=== PATIENT | female | born 1965 | race Hispanic/Latino ===

== ENCOUNTER → 2018-01-28 | Outpatient (CLI) | payer OTHER | LOC: MAMMO 09:34 | PROVIDERS: ATTEND Internal Medicine | DX: Z12.31 Encounter for screening mammogram for malignant neoplasm of breast (principal) | CPT/HCPCS: 77067 ==

== ENCOUNTER → 2018-02-22 | Outpatient (CLI) | payer OTHER ==
--- NOTE | 2018-02-22 10:19 | Diagnostic Imaging Report ---
PROCEDURE: US THYROID COMPARISON: None. INDICATIONS:Thyrotoxicosis TECHNIQUE: Transverse and longitudinal nickerson-scale sonographic images of the thyroid were obtained and supplemented with color doppler. FINDINGS: Right thyroid lobe: 4.5 x 1.3 x 1.8 cm. Heterogeneous echotexture. 3 mm cyst in the upper pole. 1.3 x 1.2 x 1.3 cm nodule in the midpole, solid (2 points), hypoechoic (2 points), wider than tall (zero point) Irregularly marginated (2 points), without echogenic foci (zero point) Questionable 1.5 cm lobulated isoechoic nodule. Left thyroid lobe: 3.7 x 1.5 x 1.6 cm. Scattered sub-5 mm nodules. Isthmus: 0.3 cm CONCLUSION: 1.3 cm right thyroid nodule, TI RADS 4, recommend ultrasound guided FNA. Dictated by: Unruly Baugh M.D. on 02/22/2018 at 10:26 Electronically approved by: Unruly Baugh M.D. on 02/22/2018 at 10:26
== END ==
LOC: US 09:11
PROVIDERS: ATTEND Internal Medicine
DX: E05.90 Thyrotoxicosis, unspecified without thyrotoxic crisis or storm (principal)
CPT/HCPCS: 76536

== ENCOUNTER → 2018-03-06 | Outpatient (CLI) | payer OTHER ==
--- NOTE | 2018-03-06 13:39 | Diagnostic Imaging Report ---
#[id number] - MGDXBIL #BILATERAL DIGITAL DIAGNOSTIC MAMMOGRAM WITH SPOT COMPRESSION: 03/06/2018 Comparison is made to exams dated: 01/28/2018 mammogram - [facility] and 03/09/2016 mammogram - [facility]. Current study contains 4 films. The tissue of both breasts is heterogeneously dense. This may lower the sensitivity of mammography. There is an irregular density in the left breast middle depth superior region seen on the mediolateral oblique view only that appears persistent with focal spot compression. The density in the right breast appears to "press out" with focal spot compression and therefore represents overlapping breast tissue. No other significant masses, calcifications, or other findings are seen in either breast. IMPRESSION: INCOMPLETE: NEEDS ADDITIONAL IMAGING EVALUATION The irregular density in the left breast is indeterminate. An ultrasound is recommended. The patient will be contacted by the Mammography Department to schedule this appointment. Rajendra Anthony Jr., D.O. cw/:03/06/2018 11:51:48 Battery Test Engineer: Isabel WILSON(Yovani)(M), [facility] letter sent: Additional Imaging Needed Mammogram BI-RADS: 0 Indeterminate
--- NOTE | 2018-03-07 15:57 | Diagnostic Imaging Report ---
#[id number] - USBRELIMLT ULTRASOUND OF THE LEFT BREAST : 03/07/2018 Comparison is made to exams dated: 03/06/2018 mammogram and 01/28/2018 mammogram - [facility]. Color flow and real-time ultrasound were performed on the left breast with scanning from 8-4 o'clock. There is a benign appearing cyst measuring 9 x 3 x 9 mm at 2 o'clock 2 cm from the nipple. No solid mass is seen. IMPRESSION: BENIGN There is no sonographic evidence of malignancy. A 1 year screening mammogram is recommended. Rajendra Anthony Jr., D.O. cw/:03/07/2018 09:41:41 Mold Repair Technician: FOREST COLUNGA, [facility] letter sent: Normal Exam Ultrasound BI-RADS: 2 Benign
== END ==
LOC: MAMMO 08:54
PROVIDERS: ATTEND Internal Medicine
DX: R92.2 Inconclusive mammogram (principal)
CPT/HCPCS: 77066

== ENCOUNTER → 2019-03-31 | Outpatient (CLI) | payer OTHER | LOC: MAMMO 09:47 | PROVIDERS: ATTEND Internal Medicine | DX: Z12.31 Encounter for screening mammogram for malignant neoplasm of breast (principal) | CPT/HCPCS: 77067 ==